=== PATIENT | female | born 1940 | race Caucasian/White ===

== ENCOUNTER 2018-12-01 11:52 | Emergency (ER) | payer MEDICARE, MEDICAID ==
[~2018-12-01] VITALS: Ht 157.5 cm; Wt 53.5 kg
[2018-12-01] MEDS ORDERED: fentaNYL INJECTION 100 MCG/2 ML AMP IVP ONE ×2 (12:30→13:15)
--- NOTE | 2018-12-01 12:51 | ED Upper Extremity ---
General Stated Complaint: LT SHOULDER INJ History of Present Illness Date Seen by Provider: Dec 01, 2018 Time Seen by Provider: 12:20 Initial Comments pt is 78 yo f hx afib s/p ablation in october on xarelto p/w shoulder pain atarumatic, she woke up like this on saturday morning. she does lift sort of a heavy water jug at night next to her bed but she didnt recall any pain then and she didnt fall. however pain has been increasing sharp severe nonradiating pain is worse with movement, n chest pain she went to primary doctor who dx a dislocation and advised er evaluation Allergies and Home Medications Allergies Coded Allergies: amiodarone (Verified Allergy, Unknown, 12/01/18) bumetanide (Verified Allergy, Unknown, 12/01/18) iodine (Verified Allergy, Unknown, 12/01/18) Patient Home Medication List Home Medication List Reviewed: Yes Review of Systems Constitutional: No fever Respiratory: no symptoms reported Cardiovascular: No chest pain, No edema; Hx of Intervention; No palpitations All Other Systems Reviewed Negative Unless Noted: Yes Past Vxpqckh-Bwngpm-Lreqcr Hx Past Med/Social Hx: Reviewed Nursing Past Med/Soc Hx Physical Exam Vital Signs Vital Signs - First Documented 12/01/18 12:10 Temp 98.1 Pulse 123 Resp 22 B/P (MAP) 169/99 (122) Pulse Ox 98 O2 Delivery Room Air Capillary Refill : Height, Weight, BMI Height: '" Weight: lbs. oz. kg; BMI Method: General Appearance: WD/WN, mild distress HEENT: PERRL/EOMI Neck: non-tender, full range of motion, supple, normal inspection Cardiovascular: other (tachycardic 2/6 sytolic murmur) Respiratory: other (coarse b/l breath sounds no tachypnea) Gastrointestinal: non tender, soft Shoulder: No non-tender (shoulder is tender throughout possible mild erythema noted, there is no deformity), No asymmetry; limited ROM, pain, soft tissue tenderness Progress/Results/Core Measures Results/Orders Lab Results Laboratory Tests Test 12/01/18 12:30 12/01/18 14:30 Range/Units White Blood Count 8.5 4.3-11.0 10^3/uL Red Blood Count 5.14 4.35-5.85 10^6/uL Hemoglobin 14.3 11.5-16.0 G/DL Hematocrit 44 35-52 % Mean Corpuscular Volume 86 80-99 FL Mean Corpuscular Hemoglobin 28 25-34 PG Mean Corpuscular Hemoglobin Concent 32 32-36 G/DL Red Cell Distribution Width 19.4 H 10.0-14.5 % Platelet Count 212 130-400 10^3/uL Mean Platelet Volume 9.5 7.4-10.4 FL Neutrophils (%) (Auto) 72 42-75 % Lymphocytes (%) (Auto) 11 L 12-44 % Monocytes (%) (Auto) 16 H 0-12 % Eosinophils (%) (Auto) 0 0-10 % Basophils (%) (Auto) 1 0-10 % Neutrophils # (Auto) 6.1 1.8-7.8 X 10^3 Lymphocytes # (Auto) 1.0 1.0-4.0 X 10^3 Monocytes # (Auto) 1.4 H 0.0-1.0 X 10^3 Eosinophils # (Auto) 0.0 0.0-0.3 10^3/uL Basophils # (Auto) 0.1 0.0-0.1 10^3/uL Sodium Level 135 135-145 MMOL/L Potassium Level 3.4 L 3.6-5.0 MMOL/L Chloride Level 95 L 98-107 MMOL/L Carbon Dioxide Level 21 21-32 MMOL/L Anion Gap 19 H 5-14 MMOL/L Blood Urea Nitrogen 25 H 7-18 MG/DL Creatinine 1.07 0.60-1.30 MG/DL Estimat Glomerular Filtration Rate 49 BUN/Creatinine Ratio 23 Glucose Level 99 70-105 MG/DL Calcium Level 10.1 8.5-10.1 MG/DL Corrected Calcium 9.9 8.5-10.1 MG/DL Total Bilirubin 6.5 H 0.1-1.0 MG/DL Aspartate Amino Transf (AST/SGOT) 17 5-34 U/L Alanine Aminotransferase (ALT/SGPT) 14 0-55 U/L Alkaline Phosphatase 141 H 40-136 U/L Troponin T 28 H 26 H <=10 NG/L Pro-B-Type Natriuretic Peptide 02309.0 H <75.0 PG/ML Total Protein 7.3 6.4-8.2 GM/DL Albumin 4.3 3.2-4.5 GM/DL My Orders Orders - SAMINA LEUNG MD Chest 1 View Ap/Pa Only (12/01/18 12:29) Shoulder 3 View Left (12/01/18 12:29) Troponin T (12/01/18 12:29) Cbc With Automated Diff (12/01/18 12:29) Fentanyl Injection (Sublimaze Injection (12/01/18 12:30) Comprehensive Metabolic Panel (12/01/18 12:29) Fentanyl Injection (Sublimaze Injection (12/01/18 13:15) Ekg Tracing (12/01/18 12:10) Continuous Ekg Monitoring (12/01/18 13:16) Iv/Invasive Line Insertion .IV start (12/01/18 12:10) Probnp Fs (12/01/18 13:17) Diltiazem Injection (Cardizem Injection) (12/01/18 13:45) Furosemide Injection (Lasix Injection) (12/01/18 13:45) Potassium Chloride (Tablet) (K Dur Table (12/01/18 13:45) Aspirin Chewable Tablet (Baby Aspirin Ch (12/01/18 13:45) Troponin T (12/01/18 14:54) Diltiazem Cd 24 Hr Capsule (Cardizem Cd (12/01/18 15:15) Metoprolol Tartrate (Ir) Tab (Lopressor (12/01/18 15:15) Potassium Chloride (Tablet) (K Dur Table (12/01/18 15:30) Medications Given in ED Current Medications Medications Dose Ordered Sig/Juan Carlos Route Start Time Stop Time Status Last Admin Dose Admin Aspirin 324 mg ONCE ONCE PO 12/01/18 13:45 12/01/18 13:51 DC 12/01/18 14:03 324 MG Diltiazem HCl 10 mg ONCE ONCE IVP 12/01/18 13:45 12/01/18 13:46 DC 12/01/18 14:02 10 MG Fentanyl Citrate 50 mcg ONCE ONCE IVP 12/01/18 12:30 12/01/18 12:31 DC 12/01/18 12:40 50 MCG Fentanyl Citrate 50 mcg ONCE ONCE IVP 12/01/18 13:15 12/01/18 13:16 DC 12/01/18 13:14 50 MCG Metoprolol Tartrate 25 mg ONCE ONCE PO 12/01/18 15:15 12/01/18 15:16 DC 12/01/18 15:23 25 MG Potassium Chloride 20 meq ONCE ONCE PO 12/01/18 15:30 12/01/18 15:31 12/01/18 15:25 20 MEQ Vital Signs/I&O 12/01/18 12:10 Temp 98.1 Pulse 123 Resp 22 B/P (MAP) 169/99 (122) Pulse Ox 98 O2 Delivery Room Air Progress Progress Note : Progress Note 78 yo f hx of afib on xarelto s/p albation in october at [facility] 11/13 documented lbbb from [facility] p/w shoulder pain since sat am pain sharp severe unable to move shoulder went to pmd and diagnosed with shoulder dislocation on xray per family report. sent to er, pt denies trauma. does lift some water jug next to her bed but does not recall pain when doing that until waking up with the pain no fever in ed denies chest pain noted the tachycardia in er, pt is uncomfortable, she has bp and hr diary in the er that shows HR averaging 110-120 range at her baseline when she is feeling good the last two weeks or more. xray: no dislocation there is subluxation COMPARISON: Comparison is made with prior chest from 05/27/2007. 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 Heart appears enlarged. Right hemidiaphragm is elevated. There may be some infiltrate or atelectasis in the right base. Right costophrenic angle is also blunted suggestive of minimal pleural fluid. Left lung is fairly clear. There is significant widening of the acromiohumeral space on the left. Humeral head appears to be subluxed inferiorly in relation to the glenoid. No fracture is seen. IMPRESSION: 1. Right hemidiaphragmatic elevation with minimal infiltrate or atelectasis in the right base as well as a probable small right effusion. 2. Inferior subluxation of the humerus in relation to the glenoid on the left. Dictated on workstation # [id number] Dict: 12/01/18 1253 Trans: 12/01/18 1257 [id number] Interpreted by: DARLEEN CARROLL MD Electronically signed by: FINDINGS: Three views of the left shoulder demonstrate marked widening of the acromiohumeral space. The glenohumeral alignment appears abnormal. The humeral head projects slightly inferior, consistent with inferior subluxation. The scapular Y-view is limited due to blurring. There may be some anterior subluxation present as well. No fractures are seen. The acromioclavicular alignment is normal. IMPRESSION: Left shoulder subluxation. No acute fracture is detected. Dictated on workstation # [id number] Dict: 12/01/18 1254 Trans: 12/01/18 1300 [id number] Interpreted by: DARLEEN CARROLL MD Electronically signed by: two trops show downtrending. this clinical picture is not c/w ACS, the msk pain is clearly reproducible and msk in nature with abnormal xray finding. i d/w dr pérez from ortho who has said that there is no acute intervention for subluxed shoulder necessary, would focus on dealing with cardiac issues i spoke with rn for darshan key account director and reviewed pt's history has longstanding hx of tachycardia, most time heart rates are in the 110's, had ablation last month. they are monitoring heart rate and increasnig dilt as needed for now. i spent 20 minutes plus talking to Hever her son over phone. iniitally i recommended admission for treatment of her pain as well as more importantly for rate control, diuresis , cycle torponins etc. i felt this was fairly objective indication for admission and i discussed this with him. he is VERY reluctant to have her admitted for this, he wants her to go home. she has longstanding hx of tachycardia, he is not worried about her heart today really. he thinks the herat rate is from not taking her diltiazem this morning. he will have her f/u with primary key account director soon. she has been dealing with this for a long time he tells me. given the whole clinical picture, i did recommend admit but given pt and strong family prefernce, trial of outpt mgmt seems okay. son is well versed on return precautions for any changes. i recommended extra lasix the next 3-4 days. we reviewed her cxr finding, he said he doesnt think it is pna, she has had no fever, she had issues with abx last year he doesnt want her to get them unnecessarily . i aksed him to be on look out for any signs of infection. the cxr finding is more likely related to pleural efusion from effusion/fluid overload. sat'ing well in the ER so probably not acute, i suspect subacute given weeks of tachcyardia. i have asked them to wear sling, take norco with colace as needed for pain, f/u with orthopedics in 1-2 weeks for further evaluation and treatment. i did initially recommended admiission for Hever but he was very much against that and after approximately 30-40 minutes of discussion between him and caling her primary key account director office, and getting second troponin downtrending, i feel the outpatient plan is probably reasonable (although again, not my first preference). er course, when we gave the dilt the hr did come down temporarily , we dont have oral dilt here so pt will take her dose when she gets home. Initial ECG Impression Date: Dec 01, 2018 Initial ECG Impression Time: 12:20 Comment probably sinus tach somewhat wavy baseline limits eval but regular. lbbb rate 125. in light of that no stemi Departure Impression Primary Impression: Subluxation of shoulder joint Disposition: 01 HOME, SELF-CARE Condition: Stable Departure-Patient Inst. Referrals: SANCHEZ HIDALGO DO (PCP/Family) Primary Care Physician Patient Instructions: How to Use a Shoulder Sling Add. Discharge Instructions: use sling, ice rest. follow up with Onur Pitts in [place] for the shoulder. Call your cardiology office tomorrow for medication recommendations. please take extra dose of lasix daily for the next three days. Scripts Docusate Sodium (Colace) 100 Mg Capsule 100 MG PO DAILY, #15 CAP Prov: SAMINA LEUNG MD 12/01/18 Hydrocodone Bit/Acetaminophen (Hydrocodone/Acetaminophen 5/325mg Tablet) 1 Tab Tab 1 EACH PO Q4-6HR PRN for PAIN-MODERATE, #8 TAB Prov: SAMINA LEUNG MD 12/01/18 SAMINA LEUNG MD Dec 01, 2018 12:51
--- NOTE | 2018-12-01 12:57 | Diagnostic Imaging Report ---
INDICATION: Left shoulder pain. COMPARISON: Comparison is made with prior chest from 05/27/2007. 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 Heart appears enlarged. Right hemidiaphragm is elevated. There may be some infiltrate or atelectasis in the right base. Right costophrenic angle is also blunted suggestive of minimal pleural fluid. Left lung is fairly clear. There is significant widening of the acromiohumeral space on the left. Humeral head appears to be subluxed inferiorly in relation to the glenoid. No fracture is seen. IMPRESSION: 1. Right hemidiaphragmatic elevation with minimal infiltrate or atelectasis in the right base as well as a probable small right effusion. 2. Inferior subluxation of the humerus in relation to the glenoid on the left. Dictated by: Dictated on workstation # [id number]
--- NOTE | 2018-12-01 13:00 | Diagnostic Imaging Report ---
INDICATION: Left shoulder pain. TIME OF EXAMINATION: 12:27 PM. FINDINGS: Three views of the left shoulder demonstrate marked widening of the acromiohumeral space. The glenohumeral alignment appears abnormal. The humeral head projects slightly inferior, consistent with inferior subluxation. The scapular Y-view is limited due to blurring. There may be some anterior subluxation present as well. No fractures are seen. The acromioclavicular alignment is normal. IMPRESSION: Left shoulder subluxation. No acute fracture is detected. Dictated by: Dictated on workstation # [id number]
[2018-12-01 13:27] LABS: HEMATOCRIT 44 % (35-52); HEMOGLOBIN 14.3 G/DL (11.5-16.0); MEAN CORPUSCULAR HEMOGLOBIN 28 PG (25-34); MEAN CORPUSCULAR VOLUME 86 FL (80-99); WHITE BLOOD COUNT 8.5 10^3/uL (4.3-11.0)
[2018-12-01 13:28] LABS: EOSINOPHILS % (AUTO) 0 % (0-10); LYMPHOCYTES % (AUTO) 11 % (12-44); MEAN CORPUSCULAR HGB CONC 32 G/DL (32-36); MEAN PLATELET VOLUME 9.5 FL (7.4-10.4); MONOCYTES % (AUTO) 16 % (0-12); NEUTROPHILS % (AUTO) 72 % (42-75); PLATELET COUNT 212 10^3/uL (130-400); RED CELL DISTRIBUTION WIDTH 19.4 % (10.0-14.5)
[2018-12-01 13:29] LABS: BASOPHILS # (AUTO) 0.1 10^3/uL (0.0-0.1); BASOPHILS % (AUTO) 1 % (0-10); MONOCYTES # (AUTO) 1.4 X 10^3 (0.0-1.0); NEUTROPHILS # (AUTO) 6.1 X 10^3 (1.8-7.8)
[2018-12-01 13:33] LABS: ALBUMIN 4.3 GM/DL (3.2-4.5); BILIRUBIN,TOTAL 6.5 MG/DL (0.1-1.0); CALCIUM 10.1 MG/DL (8.5-10.1); CREATININE SERUM 1.07 MG/DL (0.60-1.30); POTASSIUM 3.4 MMOL/L (3.6-5.0); TOTAL PROTEIN 7.3 GM/DL (6.4-8.2)
[2018-12-01] MEDS ORDERED: ASPIRIN 81 MG CHEW (CHILDREN'S ASA) PO ONE (13:45)
[2018-12-01] MEDS ORDERED: DILTIAZEM 25 MG/5 ML INJ (CARDIZEM) VIAL IVP ONE (13:45)
[2018-12-01] MEDS: FUROSEMIDE 40 MG/4 ML INJ (LASIX) IVP ONE ×2 (14:02→14:15)
[2018-12-01] MEDS: KCL 20 MEQ TAB (K-DUR) PO ONE ×2 (14:03→14:16)
[2018-12-01] MEDS ORDERED: meTOprolol TARTRATE 25 MG (LOPRESSOR) TABLET PO ONE (15:15)
[2018-12-01] MEDS ORDERED: DILTIAZEM 180 MG (CARDIZEM CD) CAP PO ONE (15:15)
[2018-12-01] MEDS ORDERED: KCL 20 MEQ TAB (K-DUR) PO ONE (15:30)
[2018-12-01] MEDS ORDERED: DOCU-143 PO (15:57)
[2018-12-01] MEDS ORDERED: ACHD5005 PO (15:57)
[2018-12-01 16:50] VITALS: BP 120/79
== END 2018-12-01 16:49 | disposition home or self-care (01) ==
LOC: EDUNIT# 11:52 → ER FS 11:56
DX: S43.002A Unspecified subluxation of left shoulder joint, initial encounter (principal); Z79.01 Long term (current) use of anticoagulants; Z91.041 Radiographic dye allergy status; Z88.8 Allergy status to other drugs, medicaments and biological substances; X50.0XXA Overexertion from strenuous movement or load, initial encounter
CPT/HCPCS: 36415; 71045; 73030; 80053; 83880; 84484; 85025

== ENCOUNTER → 2018-12-02 | Outpatient (CLI) | payer MEDICARE ==
[~2018-12-02] MED LIST: ACHD5005 PO; DOCU-143 PO
--- NOTE | 2018-12-02 12:15 | Diagnostic Imaging Report ---
INDICATION: Left shoulder injury. COMPARISON: 12/01/2018. FINDINGS: Four views of the left shoulder demonstrate unchanged subluxation of the glenohumeral joint. Diffuse osteopenia is present. There is no overt fracture. The AC joint is intact. IMPRESSION: Unchanged subluxation of the glenohumeral joint without fracture. Dictated by: Dictated on workstation # [id number]
--- NOTE | 2018-12-02 13:50 | Diagnostic Imaging Report ---
PATIENT HISTORY: Left shoulder hemarthrosis. TECHNIQUE: Grayscale and color Doppler ultrasound is performed of the left shoulder. COMPARISON: None. FINDINGS: There is an area of significantly heterogeneous echogenicity about the left humeral head. No internal vascularity is seen, although there is minimal blood flow along the periphery. It appears to be underlying the musculature and thought to represent the deltoid. A rotator cuff exam was not performed at this time. This is compatible with a large hemarthrosis, although this could also represent a soft tissue hematoma or other hypovascular mass. IMPRESSION: Large area of heterogeneous echogenicity about the left humeral head. This most likely represents a large hemarthrosis of the left shoulder, although not specific. Dictated by: Dictated on workstation # [id number]
== END ==
LOC: RAD FS 11:10
PROVIDERS: ATTEND Nurse Practitioner
DX: S43.002A Unspecified subluxation of left shoulder joint, initial encounter (principal); S46.012A Strain of muscle(s) and tendon(s) of the rotator cuff of left shoulder, initial encounter; M25.012 Hemarthrosis, left shoulder; Z79.01 Long term (current) use of anticoagulants
CPT/HCPCS: 73030; 76881